=== PATIENT | female | born 1990 | race Caucasian/White ===

== ENCOUNTER 2017-02-21 21:57 | Emergency (ER) | payer SELFPAY ==
[2017-02-21 22:24] VITALS: BMI 25.8
[2017-02-21 22:45] VITALS: BP 121/79; PULSE 80; RESP 18; O2SAT 100
[2017-02-21] MEDS ORDERED: Naproxen 550 mg Tab PO STA (23:08)
--- NOTE | 2017-02-21 23:11 | ED PDOC ---
Arrival/HPI - General Chief Complaint: Chest Pain Time Seen by Provider: 02/21/17 22:29 Historian: Patient - History of Present Illness Narrative History of Present Illness (Text): 02/22/17 01:54 Patient with no past medical history, is a nonsmoker, reports 2 day history of constant sharp left upper chest pain that waxes and wanes and radiates to the left arm, states that the pain started when she was washing the dishes, states the pain is worse with palpation and with movement. Otherwise: (-) diaphoresis, (-) dyspnea, (-) pleuritic component, (-) ripping or tearing quality, (-) positional component, (-) exertional component, (-) dizziness, (-) syncope, (-) back pain, (-) abdominal pain, (-) nausea, (-) vomiting, (-) calf swelling/pain , (-) fever, (-) cough, (-) recent travel, (-) OCP use, (-) recent hospitalizations, (-) recent illness, (-) neuro deficits. PMD none Past Medical History - Provider Review Nursing Documentation Reviewed: Yes - Infectious Disease Hx of Infectious Diseases: None - Psychiatric Hx Substance Use: No - Anesthesia Hx Anesthesia: No Family/Social History - Physician Review Nursing Documentation Reviewed: Yes Family/Social History: Diabetes (mother). denies: CVA/TIA, Hypertension, CAD/[place] Smoking Status: Never Smoked Hx Alcohol Use: No Hx Substance Use: No Allergies/Home Meds Allergies/Adverse Reactions: Allergies No Known Allergies Allergy (Verified 02/21/17 22:24) Review of Systems - Review of Systems Constitutional: Normal. absent: Fatigue, Weight Change, Fevers Respiratory: Normal. absent: SOB, Cough, Sputum Cardiovascular: Normal, Chest Pain. absent: Palpitations, Edema Gastrointestinal: Normal. absent: Abdominal Pain, Stool Changes, Appetite Changes Musculoskeletal: Normal. absent: Arthralgias, Back Pain, Neck Pain Skin: Normal. absent: Rash, Pruritis, Skin Lesions Neurological: Normal. absent: Headache, Dizziness, Focal Weakness Physical Exam - Physical Exam Narrative Physical Exam (Text): 02/22/17 01:53 GENERAL APPEARANCE: Patient is awake, alert, oriented x 3, in no acute distress. SKIN: Warm, dry; (-) cyanosis. EYES: (-) conjunctival pallor. ENMT: Mucous membranes moist. NECK: (-) tenderness, (-) stiffness, (-) lymphadenopathy, (-) JVD. CHEST AND RESPIRATORY: (-) rash, (+) L sided upper chest wall tenderness, ilicited with ROM of the L arm. Lungs: (-) rales, (-) rhonchi, (-) wheezes, (- ) rub; breath sounds equal bilaterally. HEART AND CARDIOVASCULAR: (-) irregularity; (-) murmur, (-) gallop, (-) rub. ABDOMEN AND GI: Soft; (-) distention, (-) tenderness, (-) palpable pulsatile mass. EXTREMITIES: (-) deformity; (-) edema, (-) calf tenderness. (+) distal pulses. NEURO AND PSYCH: Mental status as above. Cranial nerves grossly intact; strength symmetric. Vital Signs Pulse Resp BP Pulse Ox 02/21/17 22:42 80 18 121/79 100 Medical Decision Making ED Course and Treatment: 02/22/17 01:48 26-year-old female otherwise healthy with no medical problems, is a nonsmoker, reports 2 day history of constant left-sided chest pain radiating down the left arm that is not related to exertion, likely musculoskeletal chest pain. EKG ordered. Given naprosyn for pain. EKG: NSR at 77 bpm, (-) acute ST changes, as read by EUGENIA. On reevaluation, patient is lying in bed comfortably in no acute distress. Vital signs are stable. Physical exam is unchanged. Patient has no past medical history, is a nonsmoker, and has no significant family history of heart disease , her current complaint today is not consistent with symptoms of chest pain that could be related to a cardiac etiology therefore based on history, exam and diagnostic results plan will be for outpatient follow-up with referral provided. Patient however instructed to return to the emergency room at any time for any new or worsening symptoms especially fever, shortness of breath or worsening chest pain. Patient states she fully agrees with and understands discharge instructions. States that she agrees with the plan and disposition. Verbalized and repeated discharge instructions and plan. I have given the patient opportunity to ask any additional questions. Follow up with referral provided in 1-2 days without fail. Advised to take medication as prescribed. Return to the emergency room at any time for any new or worsening symptoms. - Medication Orders Current Medication Orders: Discontinued Medications Naproxen (Anaprox Ds) 550 mg PO ONCE STA Stop: 02/21/17 23:09 Last Admin: 02/21/17 23:16 Dose: 550 mg - PA / OTOLARYNGOLOGY REP / Resident Statement / has reviewed & agrees with the documentation as recorded. Disposition/Present on Arrival - Present on Arrival Any Indicators Present on Arrival: No History of DVT/PE: No History of Uncontrolled Diabetes: No Urinary Catheter: No History of Decub. Ulcer: No History Surgical Site Infection Following: None - Disposition Have Diagnosis and Disposition been Completed?: Yes Diagnosis: Musculoskeletal chest pain Disposition: HOME/ ROUTINE Disposition Time: 23:00 Patient Plan: Discharge Condition: STABLE Discharge Instructions (ExitCare): Chest Pain (ED) Print Language: SPANISH Additional Instructions: Thank you for letting us take care of you today. You were treated for musculoskeletal chest pain. The emergency medical care you received today was directed at your acute symptoms. If you were prescribed any medication, please fill it and take as directed. It may take several days for your symptoms to resolve. Return to the Emergency Department if your symptoms worsen, do not improve, or if you have any other problems. Please contact one of the physicians/clinics you have been referred to that are listed on the Patient Visit Information form that is included in your discharge packet. Bring any paperwork you were given at discharge with you along with any medications you are taking to your follow up visit. Our treatment cannot replace ongoing medical care by a primary care provider (PCP) outside of the emergency department. Thank you for allowing the [facility] team to be part of your care today. Prescriptions: Naproxen 500 mg PO BID #30 tab Referrals: [facility] at [facility] [place] [Outside] - Follow up with primary
--- NOTE | 2017-02-22 10:44 | CARD ---
APPROVED REPORT EKG Measurement Heart [id number] <Conclusion> Normal sinus rhythm Normal ECG
== END 2017-02-21 23:22 | disposition home or self-care (01) ==
LOC: ED 21:57
DX: R07.89 Other chest pain (principal)

== ENCOUNTER 2017-03-25 17:57 | Emergency (ER) | payer SELFPAY ==
[2017-03-25 18:05] VITALS: BP 148/90; PULSE 92; TEMP 98.2; O2SAT 99; BMI 26.6
--- NOTE | 2017-03-25 18:11 | ED PDOC ---
Arrival/HPI - General Chief Complaint: Female Genitourinary Time Seen by Provider: 03/25/17 17:58 Historian: Patient - History of Present Illness Narrative History of Present Illness (Text): 03/25/17 18:08 26 y/o female, no significant pmh, nkda, LMP 02/10/2017, wants to have the test perform to see if she is . Pt. stated that she did the test at home, noted to be negative but wants to double check, no fever or chills, no vaginal bleeding or discharge, no abdominal or pelvic pain, no other medical or psychological complaints. Past Medical History - Provider Review Nursing Documentation Reviewed: Yes - Infectious Disease Hx of Infectious Diseases: None - Psychiatric Hx Substance Use: No - Anesthesia Hx Anesthesia: No Family/Social History - Physician Review Nursing Documentation Reviewed: Yes Family/Social History: Unknown Family HX Smoking Status: Never Smoked Hx Alcohol Use: No Hx Substance Use: No Allergies/Home Meds Allergies/Adverse Reactions: Allergies No Known Allergies Allergy (Verified 03/25/17 18:06) Home Medications: Home Meds Medication Instructions Recorded Confirmed No Known Home Med 03/25/17 03/25/17 Review of Systems - Review of Systems Constitutional: absent: Fatigue, Fevers Eyes: absent: Vision Changes ENT: absent: Hearing Changes Respiratory: absent: SOB, Cough Cardiovascular: absent: Chest Pain Gastrointestinal: absent: Abdominal Pain, Diarrhea, Nausea, Vomiting Musculoskeletal: absent: Arthralgias, Myalgias Skin: absent: Rash, Pruritis Physical Exam Vital Signs Reviewed: Yes Vital Signs Temp Pulse Resp BP Pulse Ox 03/25/17 18:02 98.2 F 92 H 18 148/90 99 Temperature: Afebrile Blood Pressure: Normal Pulse: Regular Respiratory Rate: Normal Appearance: Positive for: Well-Appearing, Non-Toxic, Comfortable Pain Distress: None Mental Status: Positive for: Alert and Oriented X 3 - Systems Exam Head: Present: Atraumatic, Normocephalic Pupils: Present: PERRL Extroacular Muscles: Present: EOMI Conjunctiva: Present: Normal Mouth: Present: Moist Mucous Membranes Neck: Present: Normal Range of Motion Respiratory/Chest: Present: Clear to Auscultation, Good Air Exchange. No: Respiratory Distress, Accessory Muscle Use Cardiovascular: Present: Regular Rate and Rhythm, Normal S1, S2. No: Murmurs Abdomen: Present: Normal Bowel Sounds. No: Tenderness, Distention, Peritoneal Signs Back: Present: Normal Inspection Upper Extremity: Present: Normal Inspection. No: Cyanosis, Edema Lower Extremity: Present: Normal Inspection. No: Edema Neurological: Present: GCS=15, Speech Normal, Motor Func Grossly Intact, Gait Normal, Memory Normal Skin: Present: Warm, Dry, Normal Color. No: Rashes Psychiatric: Present: Alert, Oriented x 3, Normal Insight, Normal Concentration Medical Decision Making ED Course and Treatment: 03/25/17 18:10 - -observe and reassess 03/25/17 18:34 -Urine hcg from lab is negative, POC in the ER is negative. -Discussed with the patient. -Discharge home with education on follow up with your own pmd and obgyn within 2 days, return to the ER for any new or worsening signs or symptoms. - Lab Interpretations Lab Results: Lab Results 03/25/17 18:14: Urine HCG, Qual Negative I have reviewed the lab results: Yes Interpretation: No clinic. lab abnormalty - PA / CERAMIC ENGINEER / Resident Statement / has reviewed & agrees with the documentation as recorded. Disposition/Present on Arrival - Present on Arrival Any Indicators Present on Arrival: No History of DVT/PE: No History of Uncontrolled Diabetes: No Urinary Catheter: No History of Decub. Ulcer: No History Surgical Site Infection Following: None - Disposition Have Diagnosis and Disposition been Completed?: Yes Diagnosis: test negative Disposition: HOME/ ROUTINE Disposition Time: 18:10 Patient Plan: Discharge Condition: GOOD Additional Instructions: Discharge home with education on follow up with your own pmd and obgyn within 2 days, return to the ER for any new or worsening signs or symptoms. Referrals: PCP,NO [Primary Care Provider] - Follow up with primary Manuel Pompa DO [Staff Provider] - Follow up with primary Forms: WORK NOTE
[2017-03-25 18:54] VITALS: RESP 16
== END 2017-03-25 18:54 | disposition home or self-care (01) ==
LOC: ED 17:57
DX: Z32.02 Encounter for pregnancy test, result negative (principal)

== ENCOUNTER 2017-04-21 22:23 | Emergency (ER) | payer SELFPAY ==
[2017-04-21 22:23] VITALS: BMI 26.6
== END 2017-04-22 00:05 | disposition left against medical advice (07) ==
LOC: ED 22:23
DX: Z02.89 Encounter for other administrative examinations (principal); R51 Headache